=== PATIENT | male | born 1955 | race Caucasian/White ===

== ENCOUNTER 2019-07-02 16:28 | Inpatient (IN) | payer BC ==
[~2019-07-02] VITALS: Ht 190.5 cm; Wt 131.4 kg
[~2019-07-02 16:28] MED LIST: methylPREDNISolone SOD SUCC 125 MG/2 ML IVPush ONE
[2019-07-02] MEDS ORDERED: ALBUTEROL/IPRATROPIUM 2.5MG/0.5MG, 3 ML NPPB ONE (17:30)
[2019-07-02 17:45] LABS: BASOPHILS # (AUTO) 0.03 x10^3/uL (0-0.1); BASOPHILS % (AUTO) 0 % (0-1); EOSINOPHILS # (AUTO) 0.49 x10^3/uL (0-0.4); EOSINOPHILS % (AUTO) 5 % (1-7); LYMPHOCYTES # (AUTO) 3.53 x10^3/uL (1-3.4); LYMPHOCYTES % (AUTO) 35 % (22-44); MD NO; MEAN CORPUSCULAR HEMOGLOBIN 28.9 pg (27.5-34.5); MEAN CORPUSCULAR HGB CONC 32.2 g/dL (33.2-36.2); MEAN CORPUSCULAR VOLUME 89.5 fL (81-97); MEAN PLATELET VOLUME 7.4 fL (7.4-10.4); MONOCYTES # (AUTO) 0.83 x10^3/uL (0.2-0.8); MONOCYTES % (AUTO) 8 % (2-9); NEUTROPHILS # (AUTO) 5.34 x10^3/uL (1.8-6.8); NEUTROPHILS % (AUTO) 52 % (42-75); PLATELET COUNT 354 x10^3/uL (130-400); RED BLOOD COUNT 3.84 x10^6/uL (4.38-5.82)
[2019-07-02 17:52] LABS: ALBUMIN 3.7 g/dL (3.4-5.0); ANION GAP 6 mmol/L (5-15); CALCIUM 8.8 mg/dL (8.5-10.1); CHLORIDE 102 mmol/L (98-107)
[2019-07-02 17:58] LABS: ALANINE AMINOTRANSFERASE 14 U/L (12-78); ALKALINE PHOSPHATASE 90 U/L (45-117); BILIRUBIN,TOTAL 1.2 mg/dL (0.2-1.0); CREATININE 1.28 mg/dL (0.7-1.3); TOTAL PROTEIN 8.2 g/dL (6.4-8.2); TROPONIN I < 0.015 ng/mL (0.000-0.045)
[2019-07-02] MEDS ORDERED: ALBUTEROL/IPRATROPIUM 2.5MG/0.5MG, 3 ML ONE (18:19)
--- NOTE | 2019-07-02 19:18 | NUR ---
REPORT FROM SAAD GREWAL
--- NOTE | 2019-07-02 19:53 | NUR ---
REPORT TO SAAD NICHOLS
[2019-07-02] MEDS ORDERED: THYR30TA PO (20:00)
[2019-07-02] MEDS ORDERED: OMEP-110 PO (20:00)
[2019-07-02] MEDS ORDERED: HYDR12.517 PO (20:00)
[2019-07-02] MEDS ORDERED: ATOR-2 PO (20:00)
[2019-07-02] MEDS ORDERED: BICT1TAB PO (20:00)
[2019-07-02] MEDS ORDERED: METF500T17 PO (20:00)
[2019-07-02] MEDS ORDERED: NAPR-856 PO (20:00)
[2019-07-02] MEDS ORDERED: TRAN1TBM PO (20:00)
[2019-07-02] MEDS ORDERED: ATORVASTATIN PO (20:03)
[2019-07-02] MEDS ORDERED: VALACYCLOVIR (20:03)
--- NOTE | 2019-07-02 20:23 | NUR ---
PT ADMIT ORDERED CHANGED AND REPORT GIVEN TO NEAL NURSESIVA RN
[2019-07-02 20:45] VITALS: BP 162/89
[2019-07-02] MEDS: metFORMIN 500 MG TABLET PO SCH (21:30)
[2019-07-02] MEDS ORDERED: ENALAPRILAT 1.25 MG/ML, 2ML IVPush PRN (22:00)
[2019-07-02] MEDS ORDERED: ACETAMINOPHEN 325 MG TABLET PO PRN (22:00)
[2019-07-02] MEDS: ALBUTEROL/IPRATROPIUM 2.5MG/0.5MG, 3 ML NPPB SCH (23:00)
[2019-07-02] MEDS: HEPARIN 5,000 UNITS/ML, 1ML SQ SCH (23:22)
[2019-07-02] MEDS: ATORVASTATIN 10 MG TABLET PO SCH (23:22)
[2019-07-02] MEDS: VALACYCLOVIR 500MG TABLET PO SCH (23:22)
[2019-07-02] MEDS ORDERED: OMNIPAQUE 350 MG/ML, 100ML BOTTLE ONE (23:42)
[2019-07-03 00:32] VITALS: BP 162/89
[2019-07-03] MEDS: ALBUTEROL/IPRATROPIUM 2.5MG/0.5MG, 3 ML NPPB SCH ×6 (02:59→22:59)
[2019-07-03 05:01] LABS: BASOPHILS # (AUTO) 0.05 x10^3/uL (0-0.1); BASOPHILS % (AUTO) 1 % (0-1); EOSINOPHILS # (AUTO) 0.01 x10^3/uL (0-0.4); EOSINOPHILS % (AUTO) 0 % (1-7); LYMPHOCYTES # (AUTO) 2.21 x10^3/uL (1-3.4); LYMPHOCYTES % (AUTO) 26 % (22-44); MD NO; MEAN CORPUSCULAR HEMOGLOBIN 28.9 pg (27.5-34.5); MEAN CORPUSCULAR HGB CONC 32.1 g/dL (33.2-36.2); MEAN PLATELET VOLUME 7.7 fL (7.4-10.4); MONOCYTES # (AUTO) 0.33 x10^3/uL (0.2-0.8); MONOCYTES % (AUTO) 4 % (2-9); NEUTROPHILS # (AUTO) 5.92 x10^3/uL (1.8-6.8); NEUTROPHILS % (AUTO) 70 % (42-75); PLATELET COUNT 331 x10^3/uL (130-400); RED BLOOD COUNT 3.81 x10^6/uL (4.38-5.82); RED CELL DISTRIBUTION WIDTH 21.5 % (9.4-14.8)
[2019-07-03 05:13] LABS: ANION GAP 7 mmol/L (5-15); CALCIUM 8.8 mg/dL (8.5-10.1); CHLORIDE 104 mmol/L (98-107); CREATININE 1.19 mg/dL (0.7-1.3)
[2019-07-03] MEDS: OMEPRAZOLE 20 MG CAPSULE.DR PO SCH (06:11)
[2019-07-03] MEDS: THYROID 30 MG TABLET PO SCH (06:11)
[2019-07-03] MEDS: VALACYCLOVIR 500MG TABLET PO SCH ×3 (06:11→21:53)
[2019-07-03] MEDS: HEPARIN 5,000 UNITS/ML, 1ML SQ SCH ×3 (06:12→21:53)
[2019-07-03 06:42] VITALS: BP 158/95
[2019-07-03] MEDS: metFORMIN 500 MG TABLET PO SCH ×2 (08:45→21:00)
[2019-07-03] MEDS: LISINOPRIL 10 MG TABLET PO SCH ×2 (08:50→08:54)
[2019-07-03] MEDS: BICTEGRAV/EMTRICIT/TENOFOV ALA TAB PO SCH (08:50)
[2019-07-03] MEDS: VERAPAMIL ER 240MG TABLET.ER PO SCH (08:50)
[2019-07-03] MEDS: NAPROXEN 500 MG TABLET PO SCH (08:50)
[2019-07-03] MEDS: HYDROCHLOROTHIAZIDE 12.5 MG CAPSULE PO SCH (08:51)
[2019-07-03 12:17] VITALS: BP 139/76
[2019-07-03 13:48] LABS: HCT (SEDRATE) 33.6 % (39.2-51.8)
[2019-07-03] MEDS ORDERED: DAPS100T PO (14:22)
[2019-07-03] MEDS: methylPREDNISolone SOD SUCC 125 MG/2 ML IVPush SCH (16:55)
[2019-07-03 19:13] VITALS: BP 151/73
[2019-07-03] MEDS: ATORVASTATIN 10 MG TABLET PO SCH (21:53)
[2019-07-04] MEDS: methylPREDNISolone SOD SUCC 125 MG/2 ML IVPush SCH ×3 (00:10→16:06)
[2019-07-04 00:14] VITALS: BP 125/67
[2019-07-04] MEDS: ALBUTEROL/IPRATROPIUM 2.5MG/0.5MG, 3 ML NPPB SCH ×6 (02:53→23:00)
[2019-07-04] MEDS: THYROID 30 MG TABLET PO SCH (05:07)
[2019-07-04] MEDS: HEPARIN 5,000 UNITS/ML, 1ML SQ SCH ×3 (05:08→21:51)
[2019-07-04] MEDS: VALACYCLOVIR 500MG TABLET PO SCH ×3 (05:31→21:51)
[2019-07-04 06:34] VITALS: BP 126/74
[2019-07-04] MEDS: metFORMIN 500 MG TABLET PO SCH ×2 (08:51→20:45)
[2019-07-04] MEDS: VERAPAMIL ER 240MG TABLET.ER PO SCH (08:57)
[2019-07-04] MEDS: OMEPRAZOLE 20 MG CAPSULE.DR PO SCH (08:57)
[2019-07-04] MEDS: HYDROCHLOROTHIAZIDE 12.5 MG CAPSULE PO SCH (08:58)
[2019-07-04] MEDS: DAPSONE 100 MG TABLET PO SCH (08:58)
[2019-07-04] MEDS: NAPROXEN 500 MG TABLET PO SCH (08:58)
[2019-07-04] MEDS: BICTEGRAV/EMTRICIT/TENOFOV ALA TAB PO SCH (08:58)
[2019-07-04] MEDS: LISINOPRIL 10 MG TABLET PO SCH (08:59)
[2019-07-04 12:45] VITALS: BP 139/71
[2019-07-04 19:22] VITALS: BP 132/71
[2019-07-04] MEDS: ATORVASTATIN 10 MG TABLET PO SCH (20:44)
[2019-07-05] MEDS: methylPREDNISolone SOD SUCC 125 MG/2 ML IVPush SCH ×3 (00:59→15:20)
[2019-07-05 02:38] VITALS: BP 149/88
[2019-07-05] MEDS: ALBUTEROL/IPRATROPIUM 2.5MG/0.5MG, 3 ML NPPB SCH ×4 (03:00→21:00)
[2019-07-05 05:54] LABS: MEAN CORPUSCULAR HEMOGLOBIN 29.3 pg (27.5-34.5); MEAN CORPUSCULAR HGB CONC 32.1 g/dL (33.2-36.2); MEAN PLATELET VOLUME 7.7 fL (7.4-10.4); PLATELET COUNT 358 x10^3/uL (130-400); RED BLOOD COUNT 3.69 x10^6/uL (4.38-5.82); RED CELL DISTRIBUTION WIDTH 22.9 % (9.4-14.8)
[2019-07-05] MEDS: HEPARIN 5,000 UNITS/ML, 1ML SQ SCH ×3 (05:54→21:43)
[2019-07-05] MEDS: THYROID 30 MG TABLET PO SCH (05:54)
[2019-07-05] MEDS: VALACYCLOVIR 500MG TABLET PO SCH ×3 (05:54→21:43)
[2019-07-05 06:25] LABS: BASOPHILS # (AUTO) 0.01 x10^3/uL (0-0.1); BASOPHILS % (AUTO) 0 % (0-1); EOSINOPHILS # (AUTO) 0.05 x10^3/uL (0-0.4); EOSINOPHILS % (AUTO) 0 % (1-7); LYMPHOCYTES % (AUTO) 8 % (22-44); MD SCAN; MONOCYTES # (AUTO) 0.29 x10^3/uL (0.2-0.8); MONOCYTES % (AUTO) 2 % (2-9); NEUTROPHILS # (AUTO) 13.54 x10^3/uL (1.8-6.8); NEUTROPHILS % (AUTO) 90 % (42-75)
[2019-07-05 07:33] VITALS: BP 145/77
[2019-07-05] MEDS: NAPROXEN 500 MG TABLET PO SCH (07:49)
[2019-07-05] MEDS: metFORMIN 500 MG TABLET PO SCH ×2 (07:49→21:43)
[2019-07-05] MEDS: HYDROCHLOROTHIAZIDE 12.5 MG CAPSULE PO SCH (07:49)
[2019-07-05] MEDS: BICTEGRAV/EMTRICIT/TENOFOV ALA TAB PO SCH (07:50)
[2019-07-05] MEDS: VERAPAMIL ER 240MG TABLET.ER PO SCH (07:50)
[2019-07-05] MEDS: DAPSONE 100 MG TABLET PO SCH (07:50)
[2019-07-05] MEDS: LISINOPRIL 10 MG TABLET PO SCH (07:51)
[2019-07-05] MEDS: OMEPRAZOLE 20 MG CAPSULE.DR PO SCH (07:53)
[2019-07-05] MEDS ORDERED: IPRATROPIUM 0.5 MG/2.5 ML INHA HHN SCH (08:00)
[2019-07-05 12:52] VITALS: BP 145/68
[2019-07-05 20:11] VITALS: BP 132/76
[2019-07-05] MEDS: ATORVASTATIN 10 MG TABLET PO SCH (21:43)
[2019-07-06] MEDS: methylPREDNISolone SOD SUCC 125 MG/2 ML IVPush SCH ×4 (00:02→23:54)
[2019-07-06 00:05] VITALS: BP 161/91
[2019-07-06] MEDS: HEPARIN 5,000 UNITS/ML, 1ML SQ SCH ×3 (06:06→21:22)
[2019-07-06] MEDS: THYROID 30 MG TABLET PO SCH (06:07)
[2019-07-06] MEDS: OMEPRAZOLE 20 MG CAPSULE.DR PO SCH (06:07)
[2019-07-06] MEDS: VALACYCLOVIR 500MG TABLET PO SCH ×3 (06:07→21:22)
[2019-07-06] MEDS ORDERED: IPRATROPIUM 0.5 MG/2.5 ML INHA NPPB SCH (07:00)
[2019-07-06 08:00] VITALS: BP 145/65
[2019-07-06] MEDS: VERAPAMIL ER 240MG TABLET.ER PO SCH (08:46)
[2019-07-06] MEDS: DAPSONE 100 MG TABLET PO SCH (08:46)
[2019-07-06] MEDS: BICTEGRAV/EMTRICIT/TENOFOV ALA TAB PO SCH (08:46)
[2019-07-06] MEDS: LISINOPRIL 10 MG TABLET PO SCH (08:47)
[2019-07-06] MEDS: HYDROCHLOROTHIAZIDE 12.5 MG CAPSULE PO SCH (08:47)
[2019-07-06] MEDS: NAPROXEN 500 MG TABLET PO SCH (08:47)
[2019-07-06] MEDS: metFORMIN 500 MG TABLET PO SCH ×2 (08:47→21:22)
[2019-07-06] MEDS: IPRATROPIUM 0.5 MG/2.5 ML INHA NPPB SCH ×3 (09:00→20:03)
[2019-07-06 14:45] VITALS: BP 133/68
[2019-07-06 20:06] VITALS: BP 148/79
[2019-07-06] MEDS: ATORVASTATIN 10 MG TABLET PO SCH (21:22)
[2019-07-07 00:10] VITALS: BP 156/83
[2019-07-07] MEDS: IPRATROPIUM 0.5 MG/2.5 ML INHA NPPB SCH ×3 (02:08→14:45)
[2019-07-07] MEDS: THYROID 30 MG TABLET PO SCH (06:15)
[2019-07-07] MEDS: OMEPRAZOLE 20 MG CAPSULE.DR PO SCH (06:15)
[2019-07-07] MEDS: HEPARIN 5,000 UNITS/ML, 1ML SQ SCH ×2 (06:16→14:00)
[2019-07-07] MEDS: VALACYCLOVIR 500MG TABLET PO SCH ×2 (06:16→14:20)
[2019-07-07 08:09] VITALS: BP 158/92
[2019-07-07] MEDS: methylPREDNISolone SOD SUCC 125 MG/2 ML IVPush SCH ×2 (09:09→16:46)
[2019-07-07] MEDS: DAPSONE 100 MG TABLET PO SCH (09:10)
[2019-07-07] MEDS: VERAPAMIL ER 240MG TABLET.ER PO SCH (09:10)
[2019-07-07] MEDS: metFORMIN 500 MG TABLET PO SCH (09:10)
[2019-07-07] MEDS: NAPROXEN 500 MG TABLET PO SCH (09:10)
[2019-07-07] MEDS: HYDROCHLOROTHIAZIDE 12.5 MG CAPSULE PO SCH (09:10)
[2019-07-07] MEDS: LISINOPRIL 10 MG TABLET PO SCH (09:10)
[2019-07-07] MEDS: BICTEGRAV/EMTRICIT/TENOFOV ALA TAB PO SCH (09:17)
[2019-07-07] MEDS ORDERED: PRED10TA PO (14:59)
== END 2019-07-07 17:22 | disposition home or self-care (01) | DRG 189 ==
LOC: ED 18:28 → EDIP 20:00 → 5SO 20:37 → 3N 07-04 17:33
PROVIDERS: ADMIT Family Medicine; ATTEND Emergency Medicine
DX: J96.01 Acute respiratory failure with hypoxia (principal); E11.9 Type 2 diabetes mellitus without complications; E03.9 Hypothyroidism, unspecified; E78.5 Hyperlipidemia, unspecified; J06.9 Acute upper respiratory infection, unspecified; I10 Essential (primary) hypertension; J20.9 Acute bronchitis, unspecified; J45.909 Unspecified asthma, uncomplicated; Z21 Asymptomatic human immunodeficiency virus [HIV] infection status; Z80.3 Family history of malignant neoplasm of breast; Z96.641 Presence of right artificial hip joint; G47.33 Obstructive sleep apnea (adult) (pediatric); B02.9 Zoster without complications; K21.9 Gastro-esophageal reflux disease without esophagitis; Z91.048 Other nonmedicinal substance allergy status
CPT/HCPCS: 36415; 36600; 84145; J7620; J7644; 71045; 71275; 80048; 80053; 82803; 83880; 84484; 85025; 85651; 86140; 87070; 87205; 87633; 93005; 94640; G0378; J1644; Q9967; J2930; J7512

== ENCOUNTER → 2020-09-13 | Outpatient (CLI) | payer BC ==
[~2020-09-13] MED LIST changes: +ATOR-2 PO; +ATORVASTATIN PO; +BICT1TAB PO; +DAPS100T PO; +HYDR12.517 PO; +METF500T17 PO; +NAPR-856 PO; +OMEP-110 PO; +PRED10TA PO; +THYR30TA PO; +TRAN1TBM PO; +VALACYCLOVIR; -methylPREDNISolone SOD SUCC 125 MG/2 ML IVPush ONE
== END | disposition home or self-care (01) ==
LOC: CVU 10:50
PROVIDERS: ATTEND Internal Medicine Cardiovascular Disease
DX: I25.10 Atherosclerotic heart disease of native coronary artery without angina pectoris (principal); E78.5 Hyperlipidemia, unspecified; I11.9 Hypertensive heart disease without heart failure
CPT/HCPCS: 78452; 93017; 93306; A9502